=== PATIENT | female | born 1965 ===

== ENCOUNTER 2022-06-02 06:17 | Day surgery (SDC) | payer OTHER ==
[~2022-06-02] VITALS: Ht 154.9 cm; Wt 81.6 kg
[~2022-06-02 06:17] MED LIST: FISH PO; GLUMETZA1000 MG PO; LISINOPRIL10 MG PO; MOTRIN PO; PREVAC PO; ZETIA10 MG PO; ZYRTEC10 M3 PO; [UNRECOGNIZED DRUG - OTHER] PO; [UNRECOGNIZED DRUG - OTHER] PO
== END 2022-06-02 14:30 | disposition home or self-care (01) ==
LOC: CIR.AMB 06:17
PROVIDERS: ATTEND Orthopaedic Surgery
DX: M75.121 Complete rotator cuff tear or rupture of right shoulder, not specified as traumatic (principal); M75.21 Bicipital tendinitis, right shoulder; M24.111 Other articular cartilage disorders, right shoulder; Z88.2 Allergy status to sulfonamides; I10 Essential (primary) hypertension; E11.9 Type 2 diabetes mellitus without complications; E03.9 Hypothyroidism, unspecified